=== PATIENT | female | born 1945 | race Caucasian/White ===

== ENCOUNTER 2017-06-19 14:44 | Emergency (ER) | payer OTHER ==
[2017-06-19 15:02] VITALS: BP 124/66; PULSE 93; TEMP 97.7; BMI 17.4
--- NOTE | 2017-06-19 15:04 | PDOC ---
History of Present Illness - General History Source: Patient Exam Limitations: No Limitations - History of Present Illness Initial Comments: 06/19/17 16:14 The patient is a 71 year old female, with a significant past medical history of hyperlipidemia and chronic shortness of breath, who presents to the emergency department with facial swelling for approximately 10 days. The patient reports she has noted intermittent facial swelling that is confined to her cheeks, area under her chin, and eyelids for almost 10 days. She denies any associated lip/ tongue/forehead swelling, ear pain or swelling, or sore throat. Patient reports her swelling is worse in the morning, and on occasion her eyelids are so puffy she is unable to open her eyes. She denies any associated facial/neck/back pain , fever, chills, cough, headache, or dizziness. She reports shortness of breath that is no different from her baseline, but denies any chest pain, diaphoresis, or palpitations. Patient reports seeing her PCP, with similar symptoms, where she had basic blood work and a chest X-ray, which were negative. Patient PCP sent her to the ED for further evaluation, and CT of her chest to rule out tumor. She reports a history of heavy smoking for years. She denies any abdominal pain, nausea, or vomiting. She denies any recent travel or sick contacts. Allergies: NKDA Past Surgical History: None reported. Social History: Former smoker. No ETOH or recreational drug use. <Jameson Madera - Last Filed: 06/19/17 18:58> <Zoey Pena - Last Filed: 06/19/17 19:16> - General Chief Complaint: Edema Stated Complaint: FACIAL SWELLING Time Seen by Provider: 06/19/17 15:04 Past History <Jameson Madera - Last Filed: 06/19/17 18:58> - Past Medical History Anemia: No Asthma: No Cancer: No Cardiac Disorders: No CVA: No COPD: No CHF: No Dementia: No Diabetes: No GI Disorders: No Disorders: No HTN: No Hypercholesterolemia: Yes Liver Disease: No Seizures: No Thyroid Disease: No - Surgical History Abdominal Surgery: No Appendectomy: No Cardiac Surgery: No Cholecystectomy: No Lung Surgery: No Neurologic Surgery: No Orthopedic Surgery: No - Immunization History Immunization Up to Date: No - Suicide/Smoking/Psychosocial Hx Smoking History: Current every day smoker Have you smoked in the past 12 months: Yes Number of Cigarettes Smoked Daily: 30 Information on smoking cessation initiated: Yes 'Breaking Loose' booklet given: 06/19/17 Hx Alcohol Use: No Drug/Substance Use Hx: No Substance Use Type: None Hx Substance Use Treatment: No <Zoey Pena - Last Filed: 06/19/17 19:16> - Past Medical History Allergies/Adverse Reactions: Allergies Allergy/AdvReac Type Severity Reaction Status Date / Time No Known Allergies Allergy Verified 06/19/17 14:45 Home Medications: Ambulatory Orders Diphenoxylate HCl/Atropine [Lomotil 2.5-0.025 mg Tablet] 2.5 mg PO DAILY Ezetimibe [Zetia] 10 mg PO AM 05/12/13 Gabapentin 50 mg PO TID 05/12/13 Loperamide HCl [Imodium -] 2 mg PO DAILY 05/12/13 Rivaroxaban [Xarelto] 1 each PO DAILY #20 tab.ds.pk 06/19/17 Review of Systems - Review of Systems Able to Perform ROS?: Yes Comments:: 06/19/17 16:15 GENERAL/CONSTITUTIONAL: No fever or chills. No weakness. HEAD, EYES, EARS, NOSE AND THROAT: Yes swelling to the cheeks, eyelids, and area under chin. No ear pain or discharge. No sore throat. No forehead, lip, or tongue, swelling. CARDIOVASCULAR: Yes shortness of breath. No chest pain. RESPIRATORY: No cough, wheezing, or hemoptysis. GASTROINTESTINAL: No nausea, vomiting, diarrhea or constipation. GENITOURINARY: No dysuria, frequency, or change in urination. MUSCULOSKELETAL: No joint or muscle swelling or pain. No neck or back pain. SKIN: No rash NEUROLOGIC: No headache, vertigo, loss of consciousness, or change in strength/ sensation. ENDOCRINE: No increased thirst. No abnormal weight change. HEMATOLOGIC/LYMPHATIC: No anemia, easy bleeding, or history of blood clots. ALLERGIC/IMMUNOLOGIC: No hives or skin allergy. <Jameson Madera - Last Filed: 06/19/17 18:58> *Physical Exam - Vital Signs Last Vital Signs Temp Pulse Resp BP Pulse Ox 97.7 F 93 H 20 124/66 95 12/28/17 14:45 06/19/17 14:45 06/19/17 14:45 06/19/17 14:45 06/19/17 14:45 - Physical Exam Comments: 06/19/17 16:15 GENERAL: Awake, alert, and fully oriented, in no acute distress HEAD: No signs of trauma. EYES: PERRLA, EOMI, sclera anicteric, conjunctiva clear ENT: Auricles normal inspection, hearing grossly normal, nares patent, oropharynx clear without exudates. Moist mucosa NECK: Normal ROM, supple, no lymphadenopathy, JVD, or masses LUNGS: Breath sounds equal, clear to auscultation bilaterally. No wheezes, and no crackles HEART: Regular rate and rhythm, normal S1 and S2, no murmurs, rubs or gallops ABDOMEN: Soft, nontender, normoactive bowel sounds. No guarding, no rebound. No masses EXTREMITIES: Normal range of motion, no edema. No clubbing or cyanosis. No cords, erythema, or tenderness NEUROLOGICAL: Cranial nerves II through XII grossly intact. Normal speech, normal gait SKIN: Symmetrical fullness of both cheeks and underneath chin, but no flush, tenderness, or pitting edema to the affected area. Warm, Dry, normal turgor, no rashes or lesions noted. <Madera,Giomilsy - Last Filed: 06/19/17 18:58> - Vital Signs Last Vital Signs Temp Pulse Resp BP Pulse Ox 97.7 F 93 H 20 124/66 95 06/19/17 14:45 06/19/17 14:45 06/19/17 14:45 06/19/17 14:45 06/19/17 14:45 <Zoey Pena - Last Filed: 06/19/17 19:16> ED Treatment Course - LABORATORY CBC & Chemistry Diagram: 06/19/17 15:32 06/19/17 15:32 - RADIOLOGY Radiograph Interpretation: 06/19/17 18:23 EXAM: CT Chest INTERPRETED BY: Dr. Guan REVIEWED BY: Dr. Pena IMPRESSION: An approximately 5.7 x 4 x 2 cm partially necrotic right paramedian mass lesion is seen within the superior mediastinum extending into the middle mediastinum. There is resultant partial effacement of the traversing superior vena cava. Note is also made of an intraluminal defect within the middle third of the superior vena cava which may represent intraluminal neoplastic disease/ thrombus and less likely artifact due to unopacified blood. An enlarged pretracheal mediastinal lymph node is seen with a 1.5 cm short axis diameter. There is also an enlarged subcarinal mediastinal lymph node with a 1.3 cm short axis diameter. Several mildly enlarged bilateral hilar lymph nodes are seen with a maximum diameter of 1 cm. A 1.4 cm spiculated noncalcified nonspecific right upper lobe anterior segment nodular opacity is noted. Centrilobular emphysema is seen which is probably moderate to marked. There is no definite cardiac enlargement. No pericardial effusion is seen. There is no obvious endobronchial pathology. No aortic aneurysm is noted. The osseous structures demonstrate no gross CT evidence of acute pathology or neoplastic disease. IMPRESSION: A partially necrotic 5.7 x 4 x 2 cm mediastinal mass lesion is noted probably representing confluent lymphadenopathy. There is resultant marked partial effacement of the superior vena cava. A probable intraluminal defect is also seen within the superior vena cava suggestive of neoplastic extension versus representing thrombus and less likely artifact due to unopacified blood. Several smaller areas of mediastinal lymphadenopathy also noted as well as mild bilateral hilar lymphadenopathy. A nonspecific 1.4 cm spiculated right upper lobe pulmonary nodule is seen which may be on the basis of primary neoplastic disease versus focal scarring. Advanced centrilobular emphysema is noted. EXAM: CT Soft Tissue Neck INTERPRETED BY: Dr. Guan REVIEWED BY: Dr. Pena IMPRESSION: No prior neck CT study is available at this facility for direct comparison. there is partial imaging of a superior mediastinal mass lesion as described within the chest CT report. A partially necrotic right supraclavicular lymph node is noted with a 1.4 cm short axis diameter. There is also a partially necrotic 1.1 cm left supraclavicular lymph node. Within the neck there is no evidence of vascular thrombosis or compromise. A patent dilated vein is noted within the right posterior triangle presumably as a result of venous congestion due to superior vena cava compromise described within the chest CT report. Mild subcutaneous edema is seen along the lower neck ventrally. The remaining soft tissue and vascular structures demonstrate no definite CT pathology. The visualized osseous structures demonstrate no gross CT evidence of acute pathology or neoplastic disease. IMPRESSION: Partially necrotic bilateral supraclavicular lymph nodes are noted. Mild subcutaneous edema is seen along the ventral half of the lower neck. <Jameson Madera - Last Filed: 06/19/17 18:58> - LABORATORY CBC & Chemistry Diagram: 06/19/17 15:32 06/19/17 15:32 <Zoey Pena - Last Filed: 06/19/17 19:16> Medical Decision Making - Medical Decision Making 06/19/17 18:58 First call placed to Dr. Oh at 18:24. Awaiting call back. Case discussed with Dr. Oh at 18:54. First call placed to Dr. Martinez at 18:58. Awaiting call back. Case discussed with Dr. Martinez at 19:00. <Jameson Madera - Last Filed: 06/19/17 18:58> - Medical Decision Making 06/19/17 16:52 pt presents to the ED complaining of face and neck swelling that has been intermittent for one week. Denies other complaints. Differential includes neck or chest mass, especially since she is a heavy smoker. Will check CT neck and chest and reassess. 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 After discussion with her PMD Dr. Oh and Dr. Martinez from vascular surgery, will treat with xarelto. Patient will call Dr. Oh without fail for follow up tomorrow. She understands that the mass is likely malignant and that she needs follow up with Ct surgery and Oncology. <Zoey Pena - Last Filed: 06/19/17 19:16> *DC/Admit/Observation/Transfer - Attestations Scribe Attestion: 06/19/17 16:15 Documentation prepared by Jameson Madera, acting as director medical affairs for Zoey Pena MD. <Jameson Madera - Last Filed: 06/19/17 18:58> - Discharge Dispostion Admit: No <Zoey Pena - Last Filed: 06/19/17 19:16> Diagnosis at time of Disposition: Mass of mediastinum - Discharge Dispostion Disposition: HOME Condition at time of disposition: Good - Prescriptions Prescriptions: Rivaroxaban [Xarelto] 1 each PO DAILY #20 tab.ds.pk - Patient Instructions Printed Discharge Instructions: DI for Deep Vein Thrombosis Additional Instructions: you may have cancer in your chest. you must call Dr. Oh tomorrow for follow up. You will need to see an oncologist and have a biopsy. You have a blood clot in one of the veins in your chest, so I have prescribed a blood thinner. You must come immediately to the ED for bleeding of any kind, severe headache or abdominal pain. You should come to the ED if you are hit in the head or if you have a fall or car accident. Return for severe chest pain or shortness of breath.
[2017-06-19 16:10] LABS: BASO % 1.4 % (0-2.0); EOS % 1.3 % (0-4.5); MCHC 32.4 g/dl (32.0-36.0); MEAN CELL VOLUME 92.7 fl (80-96); MEAN PLT VOLUME 9.4 fl (7.5-11.1); PLATELET COUNT 206 K/MM3 (134-434); RDW 13.1 % (11.6-15.6); WHITE BLOOD COUNT 7.5 K/mm3 (4.0-10.8)
[2017-06-19 16:17] LABS: ALBUMIN 4.2 g/dl (3.5-5.0); ALK PHOS 114 U/L (32-92); ANION GAP 9 (8-16); BILIRUBIN,TOTAL 0.7 mg/dl (0.2-1.0); CALCIUM 9.6 mg/dl (8.4-10.2); CO2 26 mmol/L (22-28); CREATININE 0.4 mg/dl (0.6-1.3); GLUCOSE,RANDOM 114 mg/dl (74-106); SGOT/AST 33 U/L (10-42); SGPT/ALT 18 U/L (10-40); TOT PROT 6.8 g/dl (6.4-8.3)
== END 2017-06-19 19:16 | disposition home or self-care (01) ==
LOC: FER 14:44
DX: R22.2 Localized swelling, mass and lump, trunk (principal); E78.5 Hyperlipidemia, unspecified; F17.210 Nicotine dependence, cigarettes, uncomplicated
CPT/HCPCS: 36415; 70491-TC; 71260-TC; 80053; 85025; 99283-25

== ENCOUNTER 2017-07-05 00:53 | Observation (INO) | payer OTHER ==
[2017-07-05 01:07] VITALS: BMI 16.9
[2017-07-05] MEDS ORDERED: ALBUTEROL SO4 2.5/IPRATROPIUM 0.5 INH SOL 3 ML VIAL.NEB. NEB ONE ×2 (01:17→01:32)
--- NOTE | 2017-07-05 01:18 | PDOC ---
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 Patient was diagnosed with the right sided pulmonary masses and SVC thrombus when she presented here with facial swelling on . Since then, she has been undergoing diagnostic studies including biopsy of mediastinal lymph nodes and lung mass via bronchoscopy by at [facility] yesterday. Patient and her family state that she was somewhat more short of breath than usual after returning from the procedure late yesterday afternoon. Dyspnea worsened through the evening and she was unable to sleep, reporting here. Patient and family report wheezing is much louder than usual. There has been no worsening of chronic cough and no hemoptysis; no fever/chills. Xarelto was used for anti-coagulation after discovery of SVC thrombus. This was DC'd on July 01 prior to procedure. Patient denies chest pain; there is been no nausea/vomiting/diarrhea Past History - Past Medical History Allergies/Adverse Reactions: Allergies Allergy/AdvReac Type Severity Reaction Status Date / Time No Known Allergies Allergy Verified 06/19/17 14:45 Home Medications: Ambulatory Orders Ezetimibe [Zetia] 10 mg PO AM 05/12/13 Gabapentin 100 mg PO TID 05/12/13 Loperamide HCl [Imodium -] 2 mg PO QID PRN 05/12/13 Rivaroxaban [Xarelto] 1 each PO DAILY #20 tab.ds.pk 06/19/17 Anemia: No Asthma: No Cancer: No Cardiac Disorders: No CVA: No COPD: Yes CHF: No Dementia: No Diabetes: No GI Disorders: No Disorders: No HTN: No Hypercholesterolemia: Yes Liver Disease: No Seizures: No Thyroid Disease: No Other medical history: INCLUSION BODY MYOSITIS - Surgical History Abdominal Surgery: No Appendectomy: No Cardiac Surgery: No Cholecystectomy: No Lung Surgery: Yes (BRONCHOSCOPY) Neurologic Surgery: No Orthopedic Surgery: No - Immunization History Immunization Up to Date: No - Suicide/Smoking/Psychosocial Hx Smoking History: Current every day smoker Have you smoked in the past 12 months: Yes Number of Cigarettes Smoked Daily: 20 Information on smoking cessation initiated: Yes 'Breaking Loose' booklet given: 07/05/17 Hx Alcohol Use: No Drug/Substance Use Hx: No Substance Use Type: None Hx Substance Use Treatment: No Review of Systems - Review of Systems Able to Perform ROS?: Yes Comments:: 12 point review of systems is negative except for what is noted in the history of present illness *Physical Exam - Vital Signs Last Vital Signs Temp Pulse Resp BP Pulse Ox 88 28 H 121/77 88 L 07/05/17 01:05 07/05/17 01:05 07/05/17 01:05 07/05/17 01:07 - Physical Exam Comments: GENERAL: Adult female, alert and oriented 3, appearing to be in mild respiratory distress; no audible wheezing/stridor HEAD: Normal with no signs of trauma. EYES: PERRLA, EOMI, sclera anicteric, conjunctiva clear. ENT: Ears normal, nares patent, oropharynx clear; scattered erythematous streaks oropharynx/no edema. Dry mucous membranes. NECK: Normal range of motion, supple without lymphadenopathy, JVD, or masses. LUNGS: Breath sounds equal, clear to auscultation bilaterally. No wheezes, and no crackles. HEART:Irregular rhythm, normal S1 and S2 without murmur, rub or gallop. ABDOMEN:.normal bowel sounds No guarding,tenderness or rebound.No masses No distention. EXTREMITIES: Normal range of motion, no edema. No clubbing or cyanosis. No erythema, or tenderness. NEUROLOGICAL: Cranial nerves II through XII grossly intact. Normal speech. No focal neurological deficits. MUSCULOSKELETAL: Back non-tender to palpation, no CVA tenderness SKIN: Warm, Dry, normal turgor, no rashes or lesions noted. ED Treatment Course - LABORATORY CBC & Chemistry Diagram: 07/05/17 01:25 07/05/17 01:25 Medical Decision Making - Medical Decision Making 07/05/17 02:01 12-lead electrocardiogram shows atrial fibrillation with rapid ventricular response (168/minute) No previous history of atrial fibrillation according to patient and her family. Patient had preop EKG on Friday (07/02) and no mention of abnormality given to the patient or her family. No other EKG available here. Since there is a question of timing of anticoagulation (in light of possibility of conversion to normal sinus rhythm after rate control medication and patient is high risk for thromboembolic events), Dr. Licona contacted and situation discussed with him(either xarelto/IV heparin). Since patient has had no hemoptysis and is 12 hours post her biopsy procedure, anticoagulation probably okay. However, postprocedure bleeding should be ruled out and chest CT will be performed prior to resumption of anticoagulation. Meanwhile, INR shows some evidence of mild anticoagulation with value of 1.67. In light of the patient's persistent tachycardia at 160-170/min, diltiazem 10 mg IV administered for rate control. Rate decreased to 130-140/min, atrial fibrillation 07/05/17 03:54 CT angiogram performed to evaluate for postprocedural bleeding and any evidence of new pulmonary thromboembolic issues. patient now in normal sinus rhythm at 105/min. She reports feeling better although dyspneic when supplemental oxygen was removed during the time the CT was performed. 07/05/17 04:20 No evidence of bleeding or other acute abnormality except for 1.4 cm spiculated nodule in the right upper lobe. Coverage for Dr Licona at [facility](Dr Gandhi) contacted and case discussed with him. He agreed to resumption of Xarelto Case discussed with GINO Nava of [facility] service since Dr. 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 Patient will be admitted telemetry, observation status (Dr. Reynoso) Xarelto 10 mg to be administered by mouth. 07/05/17 04:50 Repeat 12-lead electrocardiogram shows sinus tachycardia at 106 bpm; there is right axis deviation along with evidence of right ventricular hypertrophy. No acute ST or T-wave abnormalities are seen. No other arrhythmia/extrasystoles present *DC/Admit/Observation/Transfer Diagnosis at time of Disposition: New onset atrial fibrillation - Discharge Dispostion Condition at time of disposition: Stable Admit: Yes - Referrals - Patient Instructions - Post Discharge Activity
[2017-07-05 02:00] LABS: BASO % 0.9 % (0-2.0); EOS % 1.1 % (0-4.5); HEMATOCRIT 41.9 % (32.4-45.2); HEMOGLOBIN 13.8 GM/dL (10.7-15.3); MCH 30.4 pg (25.7-33.7); MCHC 32.9 g/dl (32.0-36.0); MEAN CELL VOLUME 92.4 fl (80-96); MEAN PLT VOLUME 9.1 fl (7.5-11.1); MONO % 6.6 % (3.8-10.2); NEUT % 82.4 % (42.8-82.8); PLATELET COUNT 217 K/MM3 (134-434); RBC 4.54 M/mm3 (3.60-5.2); RDW 14.5 % (11.6-15.6); WHITE BLOOD COUNT 9.5 K/mm3 (4.0-10.0)
[2017-07-05 02:11] LABS: INR 1.67 (0.82-1.09); PROTHROMBIN TIME (PATIENT) 18.9 SEC (9.98-11.88)
[2017-07-05 02:26] LABS: ALBUMIN 3.6 g/dl (3.4-5.0); ANION GAP 14 (8-16); BLOOD UREA NITROGEN 16 mg/dL (7-18); CALCIUM 8.8 mg/dL (8.5-10.1); CHLORIDE 104 mmol/L (98-107); CO2 24 mmol/L (21-32); GLUCOSE,RANDOM 121 mg/dL (74-106); POTASSIUM 4.2 mmol/L (3.5-5.1); SGOT/AST 55 U/L (15-37); SODIUM 142 mmol/L (136-145)
[2017-07-05 02:30] LABS: ALK PHOS 155 U/L (45-117); BILIRUBIN,TOTAL 0.6 mg/dL (0.2-1.0); CREATININE 0.6 mg/dL (0.55-1.02); SGPT/ALT 25 U/L (12-78); TOT PROT 6.9 g/dl (6.4-8.2)
[2017-07-05] MEDS ORDERED: dilTIAZem HCL 50 MG/10 ML - 10 ML VIAL ONE (02:35)
[2017-07-05] MEDS ORDERED: dilTIAZem HCL 50 MG/10 ML - 10 ML VIAL IVPUSH ONE (02:35)
[2017-07-05] MEDS ORDERED: RIVAROXABAN 10 MG TABLET PO ONE (04:36)
--- NOTE | 2017-07-05 04:46 | CONSULT ---
Consult - text type - Consultation Consultation Note: Thoracic Surgery: Called re: presentation of patient to ED with SOB and rapid afib post EBUS guided bx of right paratracheal lymph node and RUL tumor. CT chest obtained. F/U official result but no evidence of bleeding on my prelim read. 2 passes were taken with diagnostic tissue and no blood evens back from either pass. 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 Given the patient's SVC syndrome, and new onset rapid afib, OK to restart anticoagulation but would watch for hemoptysis and consider discontinuing if excessive. A small amount of streaking on sputum would be normal for a few days and would be OK to continue anticoagulation if not increasing. I will be covered by Dr. Jesse Gandhi until Tuesday 07/11 7AM. He can be contacted through our service at [phone].
[2017-07-05] MEDS ORDERED: guaiFENesin/D-METHORPHAN HB 10 ML UNIT-DOSE CUPS ONE (04:56)
[2017-07-05] MEDS ORDERED: guaiFENesin/D-METHORPHAN HB 10 ML UNIT-DOSE CUPS PO ONE (04:57)
[2017-07-05] MEDS: GABAPENTIN 100 MG CAPSULE (FP) PO SCH ×3 (05:44→21:04)
[2017-07-05] MEDS: EZETIMIBE 10 MG TABLET (FP) PO SCH (06:54)
[2017-07-05 08:42] LABS: MAGNESIUM 1.9 mg/dL (1.8-2.4); PHOSPHOROUS 3.7 mg/dl (2.5-4.6)
[2017-07-05 08:56] LABS: TROPONIN I (DFP) 0.33 ng/ml (0.03-0.50)
--- NOTE | 2017-07-05 09:57 | HP ---
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 Patient states she has had a dry cough going on for "years" and noticed yesterday immediately after the bronchoscopy the cough became wet and was productive with white sputum. Patient denies noticing any blood in sputum. She denies any fevers , chills, chest pain, abdominal pain, nausea, vomiting, diarrhea, dysuria. ER course was notable for: (1) DDimer- 977, Lactic acid- 3.2, Trop (-) x1 (2) A. fib with RVR with a rate of 160-170. (3) CTA- 1.4 cm spicular nodule right upper lobe, no PE. No aortic dissection or aneurysm. No pneumonia or pleural effusions. Emphysema scarring lung apices. Calcite granuloma left lower lobe. Recent Travel: denies PAST MEDICAL HISTORY: see HPI PAST SURGICAL HISTORY: see HPI Social History: Smoking: current daily with 60 pack years Alcohol: denies Drugs: denies Family History: Allergies No Known Allergies Allergy (Verified 06/19/17 14:45) HOME MEDICATIONS: Home Medications Medication Instructions Recorded Ezetimibe [Zetia] 10 mg PO AM 05/12/13 Gabapentin 100 mg PO TID 05/12/13 Loperamide HCl [Imodium -] 2 mg PO QID PRN 05/12/13 Rivaroxaban [Xarelto] 1 each PO DAILY #20 tab.ds.pk 06/19/17 REVIEW OF SYSTEMS CONSTITUTIONAL: Present- generalized weakness Absent: fever, chills, diaphoresis, malaise, loss of appetite, weight change HEENT: Absent: rhinorrhea, nasal congestion, throat pain, throat swelling, difficulty swallowing, mouth swelling, ear pain, eye pain, visual changes CARDIOVASCULAR: Absent: chest pain, syncope, palpitations, irregular heart rate, lightheadedness , peripheral edema RESPIRATORY: Present- cough, shortness of breath, dyspnea at rest Absent: dyspnea with exertion, orthopnea, wheezing, stridor, hemoptysis GASTROINTESTINAL: Absent: abdominal pain, abdominal distension, nausea, vomiting, diarrhea, constipation, melena, hematochezia GENITOURINARY: Absent: dysuria, frequency, urgency, hesitancy, hematuria, flank pain, genital pain MUSCULOSKELETAL: Absent: myalgia, arthralgia, joint swelling, back pain, neck pain SKIN: Absent: rash, itching, pallor HEMATOLOGIC/IMMUNOLOGIC: Absent: easy bleeding, easy bruising, lymphadenopathy, frequent infections ENDOCRINE: Absent: unexplained weight gain, unexplained weight loss, heat intolerance, cold intolerance NEUROLOGIC: Absent: headache, focal weakness or paresthesias, dizziness, unsteady gait, seizure, mental status changes, bladder or bowel incontinence PSYCHIATRIC: Absent: anxiety, depression, suicidal or homicidal ideation, hallucinations. PHYSICAL EXAMINATION Vital Signs - 24 hr 07/05/17 07/05/17 07/05/17 01:05 01:07 02:28 Temperature Pulse Rate 88 Pulse Rate [ 166 H Apical] Respiratory 28 H 22 Rate Blood Pressure 121/77 Blood Pressure 108/59 [Arm] O2 Sat by Pulse 75 L 88 L 96 Oximetry (%) 07/05/17 07/05/17 07/05/17 03:23 03:38 05:00 Temperature 98.2 F Pulse Rate 99 H Pulse Rate [ 150 H 103 H Apical] Respiratory 23 16 20 Rate Blood Pressure 130/63 Blood Pressure 94/63 101/56 [Arm] O2 Sat by Pulse 94 L 91 L 95 Oximetry (%) 07/05/17 09:00 Temperature Pulse Rate Pulse Rate [ Apical] Respiratory 20 Rate Blood Pressure Blood Pressure [Arm] O2 Sat by Pulse Oximetry (%) GENERAL: Awake, alert, and fully oriented, in no acute distress. HEAD: Normal with no signs of trauma. EYES: Pupils equal, round and reactive to light, extraocular movements intact, sclera anicteric, conjunctiva clear. No lid lag. EARS, NOSE, THROAT: Ears normal, nares patent, oropharynx clear without exudates. Moist mucous membranes. NECK: Normal range of motion, supple without lymphadenopathy, or masses. JVD to 10+cm. LUNGS: Breath sounds equal, clear to auscultation bilaterally. No wheezes, and no crackles. No accessory muscle use. RA Spo2- 87% HEART: Irregular rate and rhythm, normal S1 and S2 without rub or gallop. 3/6 systolic murmur. ABDOMEN: Soft, nontender, not distended, normoactive bowel sounds, no guarding, no rebound, no masses. No hepatomegaly or splenomegaly. MUSCULOSKELETAL: Normal range of motion at all joints. No bony deformities or tenderness. No CVA tenderness. Temporal wasting present. UPPER EXTREMITIES: 2+ pulses, warm, well-perfused. No cyanosis. No clubbing. No peripheral edema. LOWER EXTREMITIES: 2+ pulses, warm, well-perfused. No calf tenderness. No peripheral edema. NEUROLOGICAL: Cranial nerves II-XII intact. Normal speech. Normal gait. PSYCHIATRIC: Argumentitive. Good eye contact. Appropriate mood and affect. SKIN: Warm, dry, normal turgor, no rashes or lesions noted, normal capillary refill. Laboratory Results - last 24 hr 07/05/17 07/05/17 07/05/17 01:25 01:25 01:25 WBC 9.5 RBC 4.54 Hgb 13.8 Hct 41.9 MCV 92.4 MCH 30.4 MCHC 32.9 RDW 14.5 Plt Count 217 MPV 9.1 Neutrophils % 82.4 Lymphocytes % 9.0 Monocytes % 6.6 Eosinophils % 1.1 Basophils % 0.9 PT with INR 18.90 H INR 1.67 H D-Dimer Sodium 142 Potassium 4.2 Chloride 104 Carbon Dioxide 24 Anion Gap 14 BUN 16 Creatinine 0.6 Creat Clearance w eGFR > 60 Random Glucose 121 H Lactic Acid Calcium 8.8 Phosphorus Magnesium Total Bilirubin 0.6 AST 55 H ALT 25 Alkaline Phosphatase 155 H Creatine Kinase Creatine Kinase Index CK-MB (CK-2) Troponin I Total Protein 6.9 Albumin 3.6 07/05/17 07/05/17 07/05/17 01:25 01:25 01:30 WBC RBC Hgb Hct MCV MCH MCHC RDW Plt Count MPV Neutrophils % Lymphocytes % Monocytes % Eosinophils % Basophils % PT with INR INR D-Dimer 977 H Sodium Potassium Chloride Carbon Dioxide Anion Gap BUN Creatinine Creat Clearance w eGFR Random Glucose Lactic Acid 3.2 H* Calcium Phosphorus Magnesium Total Bilirubin AST ALT Alkaline Phosphatase Creatine Kinase 338 H Creatine Kinase Index 3.0 CK-MB (CK-2) 10.429 H Troponin I < 0.02 Total Protein Albumin 07/05/17 07/05/17 07:47 07:47 WBC RBC Hgb Hct MCV MCH MCHC RDW Plt Count MPV Neutrophils % Lymphocytes % Monocytes % Eosinophils % Basophils % PT with INR INR D-Dimer Sodium Potassium Chloride Carbon Dioxide Anion Gap BUN Creatinine Creat Clearance w eGFR Random Glucose Lactic Acid Calcium Phosphorus 3.7 Magnesium 1.9 Total Bilirubin AST ALT Alkaline Phosphatase Creatine Kinase 267 H Creatine Kinase Index 4.1 CK-MB (CK-2) 11.1 H Troponin I 0.33 Total Protein Albumin Imaging- CT pulmonary angiogram with contrast. Indication: Dyspnea. History of right lung mass. Technique: CT pulmonary angiogram was performed following the rapid intravenous administration of 100 mL of Omnipaque 320 contrast, utilizing the PE protocol, with multiplanar postprocessed reconstructions including MIP reformations. Comparison: 06/19/[address] Findings: No evidence of acute pulmonary artery embolus through the first order subsegmental pulmonary artery branches. The normal caliber main pulmonary artery. There is opacification of the segmental and subsegmental airways to the apical and anterior segments of the right upper lobe. There is a spiculated right upper lobe nodule measuring 2.4 x 1.5 cm (image 29 of series 6), similar in size to the prior exam. There are severe centrilobular emphysematous changes. No consolidation or focal opacity to suggest pneumonia. There is dependent, subsegmental atelectatic change in both lung bases. There is mild biapical pleural scarring. There is linear scarring versus atelectasis in the superior segment of the left lower lobe and anteromedial left lung base. Inhomogeneously enhancing mediastinal mass extending towards the right hilum, partially surrounding the ascending thoracic aorta and extrinsically compressing the superior vena cava is grossly similar to the prior exam, measuring approximately 5.8 x 4 cm. There is an enlarged prevascular lymph node measuring 2.4 x 1.2 cm, unchanged in size. Multiple additional enlarged pretracheal and subcarinal mediastinal lymph nodes are similar in size. There is bilateral hilar adenopathy, similar to the prior exam. Normal caliber thoracic aorta with no evidence of dissection. There is moderate irregular, ulcerated atheromatous plaque along the thoracic aorta and visualized upper abdominal aorta. There is no definite cardiomegaly. There is calcification of the aortic valve. There is at least moderate coronary artery calcific atherosclerosis. Evaluation of the visualized upper abdomen demonstrates no mass in the adrenal glands. Subcentimeter hypodensity in the anterior right hepatic lobe is too small to characterize, unchanged in size. There is osseous demineralization with no evidence of acute fracture. Impression : 1. No evidence of pulmonary artery embolus. 2. A 2.4 x 1.5 cm spiculated right upper lobe nodule is unchanged in size from 06/19/2017 CT, suspicious for malignancy. Please correlate with tissue sampling and/or PET/CT. 3. Occluded segmental and subsegmental airways to the anterior and apical segments of the right upper lobe, unchanged from prior. 4. Approximately 5.8 x 4 cm homogeneously enhancing anterior, superior mediastinal mass, extrinsically compressing and significantly narrowing the SVC is unchanged from prior. 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 5. Additional mediastinal lymphadenopathy and bilateral hilar lymphadenopathy as described above is similar to the immediate prior CT. 6. At least moderate coronary artery calcific atherosclerosis. Aortic valve calcification. Please correlate clinically for stenosis. Reported By: Kika Powell DO 07/05/17 1035 RAD/CHEST X-RAY PORTABLE* Chest: Shortness of breath. Since the prior study of 05/10/2014, there is a slightly more prominent mediastinum with persistently sclerotic knob and increased fullness of the right hilum. There are coarse changes but no sign of true infiltrate or failure. The angles are sharp and the soft tissues are intact. There are degenerative changes. Impression: Prominent right hilum. Slight increase in lung markings. No true infiltrate or failure. Reported By: Martín Bellamy MD 07/05/17 0758 ASSESSMENT/PLAN: A: 71-year-old female with past medical history of an inclusion body myositis, neuropathy, irritable bowel syndrome, moderate to severe COPD, lung mass, hyperlipidemia was admitted for shortness of breath. P: A-fib - start diltiazem CD 120mg daily - telemetry - [id number] Score- 5 - restart Xarelto - Avoid B-blockers 2/2 lung disease - Cards Consult COPD - duonebs q4h - solumedrol 40mg q6h - O2 to maintain Spo2>91% - guaifenessin Lung mass - CT surg following h/o Inclusion body myositis F/E/N - Low Na diet - replete prn PPX - Xarelto Dispo- Continues to require observation of her acute medical conditions. will need home o2. Visit type - Emergency Visit Emergency Visit: Yes ED Registration Date: 07/05/17 Care time: The patient presented to the Emergency Department on the above date and was hospitalized for further evaluation of their emergent condition. - New Patient This patient is new to me today: Yes Date on this admission: 07/06/17 - Critical Care Critical Care patient: No
[2017-07-05] MEDS ORDERED: RIVAROXABAN 10 MG TABLET PO SCH ×2 (10:00)
--- NOTE | 2017-07-05 13:29 | CONSULT ---
Consult - text type - Consultation Consultation Note: CARDIOLOGY ASKED BY DR. Bryant TO SEE PT 71 YO FEMALE 07/05/17 DYSPNEA. PT SEEN, EXAMINED. X RAYS ECGS REVIEWED. WORKING DX: PAROXYSMAL ATRIAL FIBRILLATION DUE TO COPD . DIFF DX: VALVULAR HEART DISEASE. SYSTOLIC MURMUR SUGGESTIVE OF AORTIC SCLEROSIS. DOUBT PULMONARY EMBOLI. NO EVIDENCE OF ACUTE MYOCARDIAL ISCHEMIA/INFARCTION. CAN NOT RULE OUT UNDERLYING ATHEROSCLEROTIC HEART DISEASE. INCREASED "[id number]" SCORE REPRESENTS INCREASED RISK OF SYSTEMIC/CEREBRAL EMBOLI. WOULD EXPECT RECURRENT ATRIAL FIBRILLATION IN THE FUTURE. LUNG DISEASE PRECLUDES ADMINISTRATION OF BETA BLOCKERS. REC: CONTINUE XARELTO. ADD ORAL CARDIZEM. OUT PATIENT ECHOCARDIOGRAM IF NOT RECENTLY PERFORMED hOLTER MONITOR/EVENT RECORDER WHEN MEDICAL THERAPY STABLE. DIRECTED BY IM/HOSPITALIST. THANKS. FULL NOTE DICTATED. FAMILY KEPTINFORMED.
[2017-07-05] MEDS: guaiFENesin 200 MG/10 ML 10 ML UNIT-DOSE CUPS PO PRN ×2 (16:22→20:50)
--- NOTE | 2017-07-05 16:39 | EKG ---
Test Reason : Blood Pressure : / mmHG Vent. Rate : 106 BPM Atrial Rate : 106 BPM P-R Int : 148 ms QRS Dur : 082 ms QT Int : 354 ms P-R-T Axes : 080 129 054 degrees QTc Int : 470 ms SINUS TACHYCARDIA RIGHT AXIS DEVIATION PULMONARY DISEASE PATTERN RIGHT VENTRICULAR HYPERTROPHY SEPTAL INFARCT (CITED ON OR BEFORE 05-JUL-2017) ABNORMAL ECG WHEN COMPARED WITH ECG OF 05-JUL-2017 01:48, SINUS RHYTHM HAS REPLACED ATRIAL FIBRILLATION VENT. RATE HAS DECREASED BY [address] NO LONGER DEPRESSED IN INFERIOR LEADS NONSPECIFIC T WAVE ABNORMALITY NO LONGER EVIDENT IN LATERAL LEADS Confirmed by HENRY PAYAN MD ([id number]) on 07/05/2017 4:38:36 PM Referred By: MD CISNEROS Confirmed By:HENRY PAYAN MD
--- NOTE | 2017-07-05 16:43 | EKG ---
Test Reason : Blood Pressure : / mmHG Vent. Rate : 172 BPM Atrial Rate : 178 BPM P-R Int : 000 ms QRS Dur : 078 ms QT Int : 280 ms P-R-T Axes : 000 132 004 degrees QTc Int : 473 ms ATRIAL FIBRILLATION WITH RAPID VENTRICULAR RESPONSE RIGHT AXIS DEVIATION RIGHT VENTRICULAR HYPERTROPHY SEPTAL INFARCT , AGE UNDETERMINED ABNORMAL ECG NO PREVIOUS ECGS AVAILABLE Confirmed by HENRY PAYAN MD ([id number]) on 07/05/2017 4:43:05 PM Referred By: MD CISNEROS Confirmed By:HENRY PAYAN MD
[2017-07-05] MEDS: ALBUTEROL SO4 2.5/IPRATROPIUM 0.5 INH SOL 3 ML VIAL.NEB. NEB PRN (17:00)
--- NOTE | 2017-07-05 17:47 | CONS ---
DATE OF CONSULTATION: 07/05/2017 REQUESTING PHYSICIAN: Dr. Oh PATIENT PROFILE: The patient is a 71-year-old woman admitted on July 05, 2017 because of shortness of breath. The patient has no known heart disease. There is no history of a myocardial infarction, angina, congestive heart failure, or rhythm disturbance in the past. 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 She has been managed with Xarelto antithrombotic therapy with decrease in facial, neck swelling. She underwent a bronchoscopy having discontinued the Xarelto 3 days prior to the procedure. She is admitted now following the procedure with palpitations and shortness of breath. She was found to be in atrial fibrillation with a ventricular rate of 170 a minute. She was treated with intravenous diltiazem with jewish of sinus rhythm. She presently complains of shortness of breath but is anxious to go home. There is no chest pain. There is a prior history of hyperlipidemia. There is no history of diabetes or hypertension. She smoked 1 pack of cigarettes per day up until the present time. MEDICATIONS: Zetia 10 mg/day, Neurontin 100 mg t.i.d., Xarelto. PRIOR MEDICAL HISTORY: Chronic obstructive lung disease, herniorrhaphy, ear surgery. SOCIAL HISTORY: She lives at home with her family. There is no history of alcohol abuse. Smoking 1 pack of cigarettes per day up until the present time. FAMILY HISTORY: Her mother of a myocardial infarction. REVIEW OF SYSTEMS: Endocrine: No history of thyroid disease. Pulmonary: Shortness of breath, chronic. Cardiac: No edema. Neurological: No focal deficit. No history of cerebrovascular accident. PHYSICAL EXAMINATION: General: The patient appears in no acute distress awake and alert, thin. Vital Signs: The heart rate is 100, temperature afebrile, blood pressure 130/60, weight 84 pounds, oxygen saturation 95% with supplemental oxygen, respiratory rate 20 per minute. Neck: There is no neck vein distention. Lungs: There is poor air exchange bilaterally and faint expiratory wheezing. Heart: Sounds are tachycardic. There is a 1/6 to 2/6 systolic murmur at the base with minimal radiation. The patient is unable to adequately cooperate with maneuvers such as Valsalva. No gallop is audible. Abdomen: Soft and nontender. Extremities: There is no peripheral edema. Neurologic: There is no focal neurological deficit. DATABASE: The electrocardiogram demonstrates atrial fibrillation with a rapid ventricular response, right axis deviation, right ventricular enlargement, possible septal infarct of indeterminate age, and minor nonspecific ST and T-wave changes. Subsequent tracings demonstrate sinus tachycardia with a right axis deviation, possible septal infarct of indeterminate age, and right ventricular hypertrophy. There are no acute ST and T-wave changes seen. LABORATORY STUDIES: Of note include a white blood cell count of 9.5, hematocrit 42%, platelet count 217,000. The INR is 1.7, D-dimer 977. The electrolytes are normal. The troponin level is less than 0.02 on 2 determinations. A glucose is 121. The chest x-ray was reviewed. It is a portable film. The hilum is prominent. There is no infiltrate, effusion, or pulmonary venous congestion. A chest CAT scan showed no evidence of pulmonary embolus. IMPRESSION: The working diagnosis is paroxysmal atrial fibrillation secondary to chronic obstructive lung disease. There is no evidence to suggest an acute coronary ischemic event as reflected by the lack of angina and the normal biochemical markers for myocardial necrosis. Pulmonary embolus has been ruled out by appropriate CT angiographic studies. The physical examination is suggestive of aortic valve sclerosis without hemodynamically significant valvular pathology. Underlying atherosclerotic heart disease cannot be ruled out. There is an increased risk of systemic embolization and stroke in light of an increase in "CHADS2 vascular score". Atrial fibrillation is expected to recur in the future. The goal of therapy would be to prevent systemic/cerebral emboli and control the ventricular response. The patient's lung disease precludes the administration of beta-blockers. I recommended the followin. Continue Xarelto. 2. Add oral Cardizem. 3. Outpatient echocardiogram if not recently performed. 4. Holter monitor/event recorder once the medical regimen has been stabilized. 5. Workup and therapy as directed by Internal Medicine and the hospital service. The diagnosis, prognosis, risks, options, and alternatives were explained at length to both the patient and family and all questions answered. JHONATAN GUY M.D. DANIELITO/[id number]
[2017-07-05] MEDS: methylPREDNISolone NA SUCC 40 MG/1 ML VIAL IVPUSH SCH (20:46)
[2017-07-05] MEDS: RIVAROXABAN 10 MG TABLET PO SCH (21:04)
[2017-07-06] MEDS: methylPREDNISolone NA SUCC 40 MG/1 ML VIAL IVPUSH SCH ×4 (02:17→21:08)
[2017-07-06] MEDS: EZETIMIBE 10 MG TABLET (FP) PO SCH (06:39)
[2017-07-06] MEDS: GABAPENTIN 100 MG CAPSULE (FP) PO SCH ×3 (06:39→21:08)
[2017-07-06] MEDS: ALBUTEROL SO4 2.5/IPRATROPIUM 0.5 INH SOL 3 ML VIAL.NEB. NEB PRN ×3 (06:40→22:30)
[2017-07-06] MEDS: guaiFENesin 200 MG/10 ML 10 ML UNIT-DOSE CUPS PO PRN ×3 (06:40→21:09)
[2017-07-06 07:23] LABS: BASO % 0.7 % (0-2.0); HEMATOCRIT 43.7 % (32.4-45.2); HEMOGLOBIN 14.5 GM/dL (10.7-15.3); LYMPH % 10.9 % (8-40); MCH 30.7 pg (25.7-33.7); MCHC 33.2 g/dl (32.0-36.0); MEAN CELL VOLUME 92.5 fl (80-96); MEAN PLT VOLUME 9.2 fl (7.5-11.1); MONO % 1.9 % (3.8-10.2); NEUT % 86.5 % (42.8-82.8); PLATELET COUNT 236 K/MM3 (134-434); RBC 4.72 M/mm3 (3.60-5.2); RDW 14.4 % (11.6-15.6); WHITE BLOOD COUNT 4.7 K/mm3 (4.0-10.0)
[2017-07-06 07:52] LABS: ANION GAP 10 (8-16); BLOOD UREA NITROGEN 7 mg/dL (7-18); CALCIUM 8.5 mg/dL (8.5-10.1); CHLORIDE 105 mmol/L (98-107); CO2 24 mmol/L (21-32); CREATININE 0.4 mg/dL (0.55-1.02); GLUCOSE,RANDOM 117 mg/dL (74-106); SODIUM 139 mmol/L (136-145)
[2017-07-06 08:16] LABS: POTASSIUM 5.4 mmol/L (3.5-5.1)
[2017-07-06] MEDS: RIVAROXABAN 10 MG TABLET PO SCH (09:12)
[2017-07-06] MEDS ORDERED: RIVAROXABAN 10 MG TABLET PO SCH (10:00)
[2017-07-06] MEDS: RIVAROXABAN 15 MG TABLET PO SCH ×2 (10:00→21:08)
--- NOTE | 2017-07-06 10:16 | PN ---
Physical Exam: SUBJECTIVE: Patient seen and examined. Patient feels easier to breath. OBJECTIVE: Vital Signs Period Temp Pulse Resp BP Sys/Lee Pulse Ox Last 24 Hr 97.4 F-98.1 F 83-98 19-20 107-125/63-91 94-95 GENERAL: Awake, alert, and fully oriented, in no acute distress. NECK: Normal range of motion, supple without lymphadenopathy, or masses. JVD to 10+cm. LUNGS: Breath sounds equal, clear to auscultation bilaterally. No wheezes, and no crackles. No accessory muscle use. RA Spo2- 87% HEART: Irregular rate and rhythm, normal S1 and S2 without rub or gallop. 3/6 systolic murmur. ABDOMEN: SNTND MUSCULOSKELETAL: Normal range of motion at all joints. No bony deformities or tenderness. No CVA tenderness. Temporal wasting present. NEUROLOGICAL: Cranial nerves II-XII intact. Normal speech. Normal gait. PSYCHIATRIC: Cooperative. Good eye contact. Appropriate mood and affect. Laboratory Results - last 24 hr 07/06/17 07/06/17 07/06/17 06:15 06:15 06:15 WBC 4.7 D RBC 4.72 Hgb 14.5 Hct 43.7 MCV 92.5 MCH 30.7 MCHC 33.2 RDW 14.4 Plt Count 236 MPV 9.2 Neutrophils % 86.5 H Lymphocytes % 10.9 D Monocytes % 1.9 L Eosinophils % 0.0 D Basophils % 0.7 Sodium 139 Potassium 5.4 H Chloride 105 Carbon Dioxide 24 Anion Gap 10 BUN 7 Creatinine 0.4 L Random Glucose 117 H Lactic Acid 1.4 Calcium 8.5 Active Medications Generic Name Dose Route Start Last Admin Trade Name Freq PRN Reason Stop Dose Admin Albuterol/Ipratropium 1 amp 07/05/17 15:22 07/06/17 06:40 Duoneb - NEB 1 amp Q4H PRN Administration SHORTNESS OF BREATH Diltiazem HCl 120 mg 07/06/17 10:00 07/06/17 09:12 Cardizem Cd - PO 120 mg DAILY TOMMY Administration Ezetimibe 10 mg 07/05/17 07:00 07/06/17 06:39 Zetia - PO 10 mg AM TOMMY Administration Gabapentin 100 mg 07/05/17 06:00 07/06/17 06:39 Neurontin - PO 100 mg TID TOMMY Administration Guaifenesin 10 ml 07/05/17 14:43 07/06/17 06:40 Robitussin - PO 10 ml Q4H PRN Administration COUGH Methylprednisolone Sodium Succinate 40 mg 07/05/17 21:00 07/06/17 09:12 Solu-Medrol - IVPUSH 40 mg Q6H-IV TOMMY Administration Rivaroxaban 15 mg 07/06/17 09:33 Xarelto - PO BID TOMMY ASSESSMENT/PLAN: A: 71-year-old female with past medical history of an inclusion body myositis, neuropathy, irritable bowel syndrome, moderate to severe COPD, lung mass, hyperlipidemia was admitted for shortness of breath. P: A-fib - Continue diltiazem CD 120mg daily - telemetry - [id number] Score- 5 - Continue Xarelto - Avoid B-blockers 2/2 lung disease - Cards recs appreciated COPD - duonebs q4h - solumedrol 40mg q6h - O2 to maintain Spo2>91% - guaifenessin Lung mass - CT surg following h/o Inclusion body myositis F/E/N - Low Na diet - replete prn PPX - Xarelto Dispo- Continues to require observation of her acute medical conditions. Visit type - Emergency Visit Emergency Visit: Yes ED Registration Date: 07/05/17 Care time: The patient presented to the Emergency Department on the above date and was hospitalized for further evaluation of their emergent condition. - New Patient This patient is new to me today: No - Critical Care Critical Care patient: No
[2017-07-07] MEDS: methylPREDNISolone NA SUCC 40 MG/1 ML VIAL IVPUSH SCH ×2 (03:08→09:37)
[2017-07-07] MEDS: ALBUTEROL SO4 2.5/IPRATROPIUM 0.5 INH SOL 3 ML VIAL.NEB. NEB PRN ×2 (03:45→09:31)
[2017-07-07] MEDS: GABAPENTIN 100 MG CAPSULE (FP) PO SCH (06:17)
[2017-07-07] MEDS: EZETIMIBE 10 MG TABLET (FP) PO SCH (06:17)
[2017-07-07 06:24] VITALS: BP 111/70; TEMP 98
[2017-07-07] MEDS: guaiFENesin 200 MG/10 ML 10 ML UNIT-DOSE CUPS PO PRN (06:31)
[2017-07-07 09:31] LABS: HEMATOCRIT 39.6 % (32.4-45.2); HEMOGLOBIN 13.1 GM/dl (10.7-15.3); LYMPH % 8.9 % (8-40); MCH 30.9 pg (25.7-33.7); MCHC 33.1 g/dl (32.0-36.0); MEAN CELL VOLUME 93.3 fl (80-96); MEAN PLT VOLUME 9.2 fl (7.5-11.1); MONO % 4.3 % (3.8-10.2); NEUT % 86.8 % (42.8-82.8); PLATELET COUNT 216 K/MM3 (134-434); RBC 4.25 M/mm3 (3.60-5.2); WHITE BLOOD COUNT 4.7 K/mm3 (4.0-10.8)
[2017-07-07] MEDS: RIVAROXABAN 15 MG TABLET PO SCH (09:31)
--- NOTE | 2017-07-07 09:45 | DS ---
Physical Exam: SUBJECTIVE: Patient seen and examined, patient is ambulatory at bedside, patient self discontinued saline lock and telemetry, refusing IV medication, wants to go home and reports she wants to follow up with the ammonia refrigeration technician and marketing admin, Dr Mccall. Travis OBJECTIVE: This is a 71-year-old woman with past medical history of moderate to severe COPD , inclusion body myositis, neuropathy, irritable bowel syndrome, hyperlipidemia , lung mass who presents for care with worsening shortness of breath status post bronchoscopy on July 04. Patient states she has had a dry cough going on for "years" and noticed yesterday immediately after the bronchoscopy the cough became wet and was productive with white sputum. Patient denies noticing any blood in sputum. She denies any fevers, chills, chest pain, abdominal pain, nausea, vomiting, diarrhea, dysuria. ER course was notable for: (1) DDimer- 977, Lactic acid- 3.2, Trop (-) x1 (2) A. fib with RVR with a rate of 160-170. (3) CTA- 1.4 cm spicular nodule right upper lobe, no PE. No aortic dissection or aneurysm. No pneumonia or pleural effusions. Emphysema scarring lung apices. Calcite granuloma left lower lobe Vital Signs Period Temp Pulse Resp BP Sys/Lee Pulse Ox Last 24 Hr 97.8 F-98.0 F 69-98 18-20 93-117/49-70 93-96 PHYSICAL EXAM GENERAL: thin appearing, he patient is awake, alert, and fully oriented, in no acute distress. HEAD: Normal with no signs of trauma. EYES: PERRL, extraocular movements intact, sclera anicteric, conjunctiva clear. ENT: Ears normal, nares patent, oropharynx clear without exudates, moist mucous membranes. NECK: Trachea midline, full range of motion, supple. LUNGS: Breath sounds equal, course rhonchi, bilaterally throughout, diminished to bases, no wheezes, no crackles, no accessory muscle use. HEART: Regular rate and rhythm, S1, S2, 3/6 systolic murmur, no rub or gallop. ABDOMEN: Soft, nontender, nondistended, normoactive bowel sounds, no guarding, no rebound, no hepatosplenomegaly, no masses. EXTREMITIES: 2+ pulses, warm, well-perfused, no edema. NEUROLOGICAL: Cranial nerves II through XII grossly intact. Normal speech, gait not observed. PSYCH: Normal mood, normal affect. SKIN: Warm, dry, normal turgor, no rashes or lesions noted. LABS Laboratory Results - last 24 hr CBC WBC 4.7 K/mm3 (4.0-10.8) D 07/07/17 06:25 RBC 4.25 M/mm3 (3.60-5.2) 07/07/17 06:25 Hgb 13.1 GM/dl (10.7-15.3) D 07/07/17 06:25 Hct 39.6 % (32.4-45.2) D 07/07/17 06:25 MCV 93.3 fl (80-96) 07/07/17 06:25 MCH 30.9 pg (25.7-33.7) 07/07/17 06:25 MCHC 33.1 g/dl (32.0-36.0) 07/07/17 06:25 RDW 13.0 % (11.6-15.6) 07/07/17 06:25 Plt Count 216 K/MM3 (134-434) 07/07/17 06:25 MPV 9.2 fl (7.5-11.1) 07/07/17 06:25 Neutrophils % 86.8 % (42.8-82.8) H 07/07/17 06:25 Lymphocytes % 8.9 % (8-40) 07/07/17 06:25 Monocytes % 4.3 % (3.8-10.2) 07/07/17 06:25 Eosinophils % 0.0 % (0-4.5) 07/07/17 06:25 Basophils % 0.0 % (0-2.0) 07/07/17 06:25 CMP Sodium 137 mmol/L (136-145) 07/07/17 06:25 Potassium 3.5 mmol/L (3.5-5.1) 07/07/17 06:25 Chloride 102 mmol/L (98-107) 07/07/17 06:25 Carbon Dioxide 23 mmol/L (22-28) 07/07/17 06:25 Anion Gap 12 (8-16) 07/07/17 06:25 BUN 10 mg/dl (7-18) 07/07/17 06:25 Creatinine 0.3 mg/dl (0.6-1.3) L D 07/07/17 06:25 Creat Clearance w eGFR > 60 (>60) 07/05/17 01:25 Random Glucose 122 mg/dl (74-106) H 07/07/17 06:25 Lactic Acid 1.4 mmol/L (0.0-2.0) 07/06/17 06:15 Calcium 8.8 mg/dl (8.4-10.2) 07/07/17 06:25 Phosphorus 3.5 mg/dl (2.5-4.6) 07/07/17 06:25 Magnesium 2.0 mg/dL (1.8-2.4) 07/07/17 06:25 Total Bilirubin 0.6 mg/dL (0.2-1.0) 07/05/17 01:25 AST 55 U/L (15-37) H 07/05/17 01:25 ALT 25 U/L (12-78) 07/05/17 01:25 Alkaline Phosphatase 155 U/L (45-117) H 07/05/17 01:25 Creatine Kinase 206 IU/L (26-192) H 07/07/17 06:25 Creatine Kinase Index 4.0 % (0.0-5.0) 07/07/17 06:25 CK-MB (CK-2) 8.3 ng/mL (0.3-4.0) H 07/07/17 06:25 Troponin I 0.07 ng/ml (0.03-0.50) 07/07/17 06:25 Total Protein 6.9 g/dl (6.4-8.2) 07/05/17 01:25 Albumin 3.6 g/dl (3.4-5.0) 07/05/17 01:25 Imaging- CT pulmonary angiogram with contrast. Indication: Dyspnea. History of right lung mass. Technique: CT pulmonary angiogram was performed following the rapid intravenous administration of 100 mL of Omnipaque 320 contrast, utilizing the PE protocol, with multiplanar postprocessed reconstructions including MIP reformations. Comparison: 06/19/[address] Findings: No evidence of acute pulmonary artery embolus through the first order subsegmental pulmonary artery branches. The normal caliber main pulmonary artery. There is opacification of the segmental and subsegmental airways to the apical and anterior segments of the right upper lobe. There is a spiculated right upper lobe nodule measuring 2.4 x 1.5 cm (image 29 of series 6), similar in size to the prior exam. There are severe centrilobular emphysematous changes. No consolidation or focal opacity to suggest pneumonia. There is dependent, subsegmental atelectatic change in both lung bases. There is mild biapical pleural scarring. There is linear scarring versus atelectasis in the superior segment of the left lower lobe and anteromedial left lung base. Inhomogeneously enhancing mediastinal mass extending towards the right hilum, partially surrounding the ascending thoracic aorta and extrinsically compressing the superior vena cava is grossly similar to the prior exam, measuring approximately 5.8 x 4 cm. There is an enlarged prevascular lymph node measuring 2.4 x 1.2 cm, unchanged in size. Multiple additional enlarged pretracheal and subcarinal mediastinal lymph nodes are similar in size. There is bilateral hilar adenopathy, similar to the prior exam. Normal caliber thoracic aorta with no evidence of dissection. There is moderate irregular, ulcerated atheromatous plaque along the thoracic aorta and visualized upper abdominal aorta. There is no definite cardiomegaly. There is calcification of the aortic valve. There is at least moderate coronary artery calcific atherosclerosis. Evaluation of the visualized upper abdomen demonstrates no mass in the adrenal glands. Subcentimeter hypodensity in the anterior right hepatic lobe is too small to characterize, unchanged in size. There is osseous demineralization with no evidence of acute fracture. Impression : 1. No evidence of pulmonary artery embolus. 2. A 2.4 x 1.5 cm spiculated right upper lobe nodule is unchanged in size from 06/19/2017 CT, suspicious for malignancy. Please correlate with tissue sampling and/or PET/CT. 3. Occluded segmental and subsegmental airways to the anterior and apical segments of the right upper lobe, unchanged from prior. 4. Approximately 5.8 x 4 cm homogeneously enhancing anterior, superior mediastinal mass, extrinsically compressing and significantly narrowing the SVC is unchanged from prior. 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 5. Additional mediastinal lymphadenopathy and bilateral hilar lymphadenopathy as described above is similar to the immediate prior CT. 6. At least moderate coronary artery calcific atherosclerosis. Aortic valve calcification. Please correlate clinically for stenosis. Reported By: Kika Powell DO 07/05/17 1035 RAD/CHEST X-RAY PORTABLE* Chest: Shortness of breath. Since the prior study of 05/10/2014, there is a slightly more prominent mediastinum with persistently sclerotic knob and increased fullness of the right hilum. There are coarse changes but no sign of true infiltrate or failure. The angles are sharp and the soft tissues are intact. There are degenerative changes. Impression: Prominent right hilum. Slight increase in lung markings. No true infiltrate or failure. Reported By: Martín Bellamy MD 07/05/17 6464 HOSPITAL COURSE: Patient was admitted from the emergency department for new onset paroxysmal afib. She converted to NSR after cardizem and patient was continued on diltiazem CD 120mg daily. [id number] Score- and Xarelto was continued throughout admission. Medical Library Assistant, Dr Lyman was consulted. Acute COPD excerbation was noted upon admission, patient was started on solumedrol 40mg q6h then transitioned to prednisone 60mg daily, symbicort and duonebs prn. spo2 was noted to be 88% on room air and 94% with 2L NC after flat surface walking, home oxygen was ordered PLAN - discharge home with VNS and home O2 - prednsione taper, symbicort and albuterol nebulizers - xarelto daily with cardizem - pt prefers to follow up with marketing admin, Dr Geiger upon the recommendation of her daughter - strict follow up cardiology Dr Lyman within 1 week - return precautions reviewed Date of Admission:07/05/17 Date of Discharge: 07/07/17 Minutes to complete discharge: 45 Discharge Summary Reason For Visit: NEW ONSET AFIB Current Active Problems New onset atrial fibrillation (Acute) Condition: Improved - Instructions Diet, Activity, Other Instructions: you were admitted to the hospital for paroxysmal afib and copd exacerbation - continue cardizem and xarelto daily as prescribed - please take prednisone daily - continue pepcid while you are on prednisone - albuterol nebulizers every 4 hours as needed for shortness of breath please follow up with Dr Lyman the ammonia refrigeration technician within 1 week please follow up with pulmonary within 2 weeks if any new or persistent symptoms develop please return to the emergency department Referrals: Bernardino Oh MD [Primary Care Provider] - Disposition: VNS/HOME HEALTH CARE - Home Medications Comprehensive Discharge Medication List: Ambulatory Orders Ezetimibe [Zetia] 10 mg PO AM 05/12/13 Gabapentin 100 mg PO TID 05/12/13 Loperamide HCl [Imodium -] 2 mg PO QID PRN 05/12/13 Rivaroxaban [Xarelto] 1 each PO DAILY #20 tab.[id number].[email or web address] 06/19/17 This patient is new to me today: Yes Date on this admission: 07/07/17 Emergency Visit: Yes ED Registration Date: 07/05/17 Care time: The patient presented to the Emergency Department on the above date and was hospitalized for further evaluation of their emergent condition. Critical Care patient: No - Discharge Referral Referred to [facility] No
[2017-07-07] MEDS ORDERED: FAMOTIDINE 20 MG TABLET PO SCH (10:00)
[2017-07-07 10:02] LABS: ANION GAP 12 (8-16); BLOOD UREA NITROGEN 10 mg/dl (7-18); CALCIUM 8.8 mg/dl (8.4-10.2); CHLORIDE 102 mmol/L (98-107); CO2 23 mmol/L (22-28); CREATININE 0.3 mg/dl (0.6-1.3); GLUCOSE,RANDOM 122 mg/dl (74-106); PHOSPHOROUS 3.5 mg/dl (2.5-4.6); POTASSIUM 3.5 mmol/L (3.5-5.1); SODIUM 137 mmol/L (136-145)
[2017-07-07 10:10] LABS: TROPONIN I (DFP) 0.07 ng/ml (0.03-0.50)
[2017-07-07 10:19] VITALS: PULSE 97
[2017-07-07] MEDS ORDERED: predniSONE 20 MG TABLET (UD) PO ONE (10:30)
[2017-07-07] MEDS ORDERED: BUDESONIDE/FORMETEROL FUMARATE 80/4.5 mcg INHALER IH SCH (11:45)
== END 2017-07-07 13:25 | disposition home health service (06) ==
LOC: FER 00:53 → FM/S 04:43
PROVIDERS: ADMIT Internal Medicine; ATTEND Nurse Practitioner Family
PROC: 3E033GC Introduction of Other Therapeutic Substance into Peripheral Vein, Percutaneous Approach (ICD-10-PCS; principal; 2017-07-05)
PROC: 3E0F7GC Introduction of Other Therapeutic Substance into Respiratory Tract, Via Natural or Artificial Opening (ICD-10-PCS; 2017-07-05)
DX: I48.0 Paroxysmal atrial fibrillation (principal); J44.9 Chronic obstructive pulmonary disease, unspecified; G72.41 Inclusion body myositis [IBM]; E78.5 Hyperlipidemia, unspecified; I82.210 Acute embolism and thrombosis of superior vena cava; R91.8 Other nonspecific abnormal finding of lung field; K58.9 Irritable bowel syndrome, unspecified; G62.9 Polyneuropathy, unspecified; Z79.01 Long term (current) use of anticoagulants; F17.210 Nicotine dependence, cigarettes, uncomplicated
CPT/HCPCS: 36415; 71045-TC; 71275-TC; 80048; 80053; 82550; 82553; 83605; 83735; 84100; 84484; 85025; 85379; 85610; 93005; 94640; 94761; 96374; 99284-25; G0378